=== PATIENT | female | born 1990 | race Two or more races ===

== ENCOUNTER 2021-07-30 22:35 | Emergency (ER) | payer SELFPAY ==
[2021-07-30 22:41] VITALS: BP 105/62; PULSE 100; TEMP 102; BMI 28.3
[2021-07-31] MEDS ORDERED: CASIRIVIMAB/IMDEVIMAB 10 ML in SODIUM CHLORIDE 100 ML IVPB ONE (00:53)
== END 2021-07-31 01:10 | disposition home or self-care (01) ==
LOC: JER 22:35
DX: U07.1 COVID-19 (principal)
CPT/HCPCS: 71046-TC-FY; 99283-25

== ENCOUNTER 2021-07-31 14:23 | Emergency (ER) | payer SELFPAY ==
[2021-07-31 14:33] VITALS: TEMP 100; BMI 26.5
[2021-07-31] MEDS ORDERED: CASIRIVIMAB/IMDEVIMAB 10 ML in SODIUM CHLORIDE 100 ML IVPB ONE (14:50)
[2021-07-31 18:13] VITALS: BP 100/71; PULSE 68
== END 2021-07-31 18:48 | disposition home or self-care (01) ==
LOC: JER 14:23
PROC: 3E033GC Introduction of Other Therapeutic Substance into Peripheral Vein, Percutaneous Approach (ICD-10-PCS; principal; 2021-07-31)
DX: U07.1 COVID-19 (principal)
CPT/HCPCS: 99284-25; M0240; Q0240